=== PATIENT | male | born 1960 | race Caucasian/White ===

== ENCOUNTER 2022-10-23 02:01 | Emergency (ER) | payer BC, OTHER ==
[~2022-10-23] VITALS: Ht 175.3 cm; Wt 80.3 kg
--- NOTE | 2022-10-23 02:09 | ED GI ---
General Stated Complaint: VOMITING/DIARRHEA History of Present Illness Date Seen by Provider: Oct 23, 2022 Time Seen by Provider: 02:09 Initial Comments 62-year-old male presents with about 2 to 3 days of just generalized malaise, not feeling well with some nausea vomiting diarrhea. He has some mild abdominal cramping but no abdominal pain. No reports of fever or chills. No other systemic complaints. Allergies and Home Medications Allergies Coded Allergies: No Known Drug Allergies (Unverified , 10/23/22) Patient Home Medication List Home Medication List Reviewed: Yes Review of Systems Review of Systems Constitutional: see HPI, dizziness, malaise Cardiovascular: No Symptoms Reported Gastrointestinal: Denies Abdominal Pain; Diarrhea, Nausea, Vomiting Musculoskeletal: no symptoms reported Skin: no symptoms reported Psychiatric/Neurological: No Symptoms Reported Endocrine: No Symptoms Reported Hematologic/Lymphatic: No Symptoms Reported Physical Exam Vital Signs Vital Signs - First Documented 10/23/22 02:06 Temp 37.0 Pulse 99 Resp 18 B/P (MAP) 116/84 (95) Pulse Ox 97 O2 Delivery Room Air Capillary Refill : Height/Weight/BMI Height: '" Weight: lbs. oz. kg; BMI Method: General Appearance: WD/WN, no apparent distress Respiratory: lungs clear, normal breath sounds Cardiovascular: normal peripheral pulses Gastrointestinal: non tender, soft Extremities: normal range of motion, non-tender Neurologic/Psychiatric: alert, normal mood/affect, oriented x 3 Skin: normal color, warm/dry Progress/Results/Core Measures Results/Orders Lab Results Laboratory Tests Test 10/23/22 02:15 Range/Units White Blood Count 8.0 4.3-11.0 10^3/uL Red Blood Count 5.53 H 4.30-5.52 10^6/uL Hemoglobin 16.4 13.3-17.7 g/dL Hematocrit 48 40-54 % Mean Corpuscular Volume 86 80-99 fL Mean Corpuscular Hemoglobin 30 25-34 pg Mean Corpuscular Hemoglobin Concent 35 32-36 g/dL Red Cell Distribution Width 13.2 10.0-14.5 % Platelet Count 223 130-400 10^3/uL Mean Platelet Volume 9.0 9.0-12.2 fL Immature Granulocyte % (Auto) 0 % Neutrophils (%) (Auto) 89 H 42-75 % Lymphocytes (%) (Auto) 4 L 12-44 % Monocytes (%) (Auto) 6 0-12 % Eosinophils (%) (Auto) 0 0-10 % Basophils (%) (Auto) 0 0-10 % Neutrophils # (Auto) 7.1 1.8-7.8 10^3/uL Lymphocytes # (Auto) 0.3 L 1.0-4.0 10^3/uL Monocytes # (Auto) 0.5 0.0-1.0 10^3/uL Eosinophils # (Auto) 0.0 0.0-0.3 10^3/uL Basophils # (Auto) 0.0 0.0-0.1 10^3/uL Immature Granulocyte # (Auto) 0.0 0.0-0.1 10^3/uL Sodium Level 136 135-145 MMOL/L Potassium Level 4.2 3.6-5.0 MMOL/L Chloride Level 104 98-107 MMOL/L Carbon Dioxide Level 22 21-32 MMOL/L Anion Gap 10 5-14 MMOL/L Blood Urea Nitrogen 29 H 7-18 MG/DL Creatinine 1.29 0.60-1.30 MG/DL Estimat Glomerular Filtration Rate 63 BUN/Creatinine Ratio 22 Glucose Level 118 H 70-105 MG/DL Calcium Level 9.6 8.5-10.1 MG/DL Corrected Calcium 9.3 8.5-10.1 MG/DL Total Bilirubin 0.4 0.1-1.0 MG/DL Aspartate Amino Transf (AST/SGOT) 23 5-34 U/L Alanine Aminotransferase (ALT/SGPT) 28 0-55 U/L Alkaline Phosphatase 67 40-136 U/L Total Protein 8.2 6.4-8.2 GM/DL Albumin 4.4 3.2-4.5 GM/DL Lipase 27 8-78 U/L My Orders Orders - SEYMOUR,MELISSA L DO Cbc With Automated Diff (10/23/22 02:13) Comprehensive Metabolic Panel (10/23/22 02:13) Lipase (10/23/22 02:13) Ondansetron Injection (Zofran Injectio (10/23/22 02:15) Ns Iv 1000 Ml (Sodium Chloride 0.9%) (10/23/22 02:13) Manual Differential (10/23/22 02:15) Medications Given in ED Current Medications Medications Dose Ordered Sig/Nicolás Route Start Time Stop Time Status Last Admin Dose Admin Ondansetron HCl 4 mg ONCE ONCE IVP 10/23/22 02:15 10/23/22 02:16 DC 10/23/22 02:20 4 MG Vital Signs/I&O 10/23/22 02:06 Temp 37.0 Pulse 99 Resp 18 B/P (MAP) 116/84 (95) Pulse Ox 97 O2 Delivery Room Air Progress Progress Note : Progress Note Patient's diagnostic studies were ordered reviewed and interpreted by me. Patient symptoms consistent with an acute gastroenteritis with nausea vomiting diarrhea. Patient's labs show no acute concerning findings. He was feeling little bit better following IV fluids and Zofran. Patient to be prescribed Zofran to help with the nausea and vomiting. I discussed supportive care including clear liquid diet, fluids advance as tolerated. Imodium as needed for severe diarrhea. He is stable and discharged home Departure Impression Primary Impression: Gastroenteritis Disposition: HOME, SELF-CARE Condition: Stable Departure-Patient Inst. Referrals: CRISTOBAL COLON DO (PCP/Family) Primary Care Physician Patient Instructions: CLEAR LIQUID DIET ADULT/CHILD, Food Poisoning (DC), Viral gastroenteritis in adults Add. Discharge Instructions: Clear liquid diet advance as tolerated, encourage you to drink plenty of fluids. Follow-up with your primary care provider return to the ER if symptoms are not improving over the next week or get significantly worse. Scripts Ondansetron (Ondansetron Odt) 4 Mg Tab.rapdis 4 MG PO Q6H PRN for NAUSEA/VOMITING, #20 TAB 0 Refills Prov: MELISSA SEYMOUR DO 10/23/22 MELISSA SEYMOUR DO Oct 23, 2022 02:09
[2022-10-23] MEDS ORDERED: NS IV 1000 ML 1,000 ML IV STA (02:13)
[2022-10-23] MEDS ORDERED: ONDANSETRON 4 MG/2 ML (SDV) Z0FRAN IVP ONE (02:15)
[2022-10-23 02:22] LABS: BASOPHILS % (AUTO) 0 % (0-10); EOSINOPHILS % (AUTO) 0 % (0-10); HEMATOCRIT 48 % (40-54); HEMOGLOBIN 16.4 g/dL (13.3-17.7); LYMPHOCYTES # (AUTO) 0.3 10^3/uL (1.0-4.0); LYMPHOCYTES % (AUTO) 4 % (12-44); MEAN CORPUSCULAR HEMOGLOBIN 30 pg (25-34); MEAN CORPUSCULAR HGB CONC 35 g/dL (32-36); MEAN CORPUSCULAR VOLUME 86 fL (80-99); MONOCYTES # (AUTO) 0.5 10^3/uL (0.0-1.0); MONOCYTES % (AUTO) 6 % (0-12); NEUTROPHILS # (AUTO) 7.1 10^3/uL (1.8-7.8); NEUTROPHILS % (AUTO) 89 % (42-75); PLATELET COUNT 223 10^3/uL (130-400)
[2022-10-23 02:39] LABS: ALBUMIN 4.4 GM/DL (3.2-4.5); POTASSIUM 4.2 MMOL/L (3.6-5.0)
[2022-10-23 02:40] LABS: CALCIUM 9.6 MG/DL (8.5-10.1)
[2022-10-23 02:42] LABS: TOTAL PROTEIN 8.2 GM/DL (6.4-8.2)
[2022-10-23 02:43] LABS: BILIRUBIN,TOTAL 0.4 MG/DL (0.1-1.0)
[2022-10-23 02:45] LABS: CREATININE SERUM 1.29 MG/DL (0.60-1.30)
[2022-10-23] MEDS ORDERED: ONDA4TAB11 PO (02:57)
[2022-10-23 03:06] VITALS: BP 116/75
[2022-10-23 03:24] LABS: BAND NEUTROPHILS 6 %; LYMPHOCYTES % (MANUAL) 2 %; MONOCYTES % (MANUAL) 7 %; NEUTROPHILS % (MANUAL) 85 %; RBC MORPH NORMAL
== END 2022-10-23 03:06 | disposition home or self-care (01) ==
LOC: EDUNIT# 02:01 → ER 02:03
DX: K52.9 Noninfective gastroenteritis and colitis, unspecified (principal)
CPT/HCPCS: 36415; 80053; 83690; 85007; 85027